=== PATIENT | male | born 2000 | race Caucasian/White ===

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

== ENCOUNTER 2021-03-11 10:47 | Observation (INO) ==
[2021-03-11] MEDS ORDERED: Morphine 4 MG/ML VIAL (1 ml) IV ONE (10:50)
[2021-03-11] MEDS ORDERED: Ondansetron 4 mg VIAL 2 MG/ML 2 ml VIAL IV ONE (10:50)
[2021-03-11] MEDS ORDERED: NS 0.9% 1000 ml BAG 1,000 ML IV ONE (10:51)
[2021-03-11 11:16] LABS: ABS Eosinophils 0.1 10^3/ul (0-0.6); ABS Lymphocytes 1.2 10^3/ul (1.0-4.8); ABS Monocytes 0.5 10^3/ul (0-0.8); ABS Neutrophils 2.2 10^3/ul (1.5-7.7); Eosinophil % 1.8 %; Hematocrit 40 % (42-52); Hemoglobin 14.2 g/dL (14.0-18.0); Mean Corpuscular HGB Conc 35 g/dL (31-36); Mean Corpuscular Hemoglobin 32 pg (27-31); Mean Corpuscular Volume 90 fL (80-94); Mean Platelet Volume 7.6 fL (7.4-10.4); Nucleated Red Blood Cells % 0.1; Platelet Count 319 10^3/uL (150-450); Red Blood Count 4.47 10^6 /uL (4.18-5.48); Red Cell Distribution Width 13 % (10-15)
[2021-03-11 11:49] LABS: Albumin 4.8 g/dL (3.2-5.2); Anion Gap 8 mmol/L (2-11); CO2 Carbon Dioxide 25 mmol/L (22-32); Calcium 9.6 mg/dL (8.6-10.3); Chloride 106 mmol/L (101-111); Potassium 3.8 mmol/L (3.5-5.0); Sodium 139 mmol/L (135-145)
[2021-03-11 11:55] LABS: ALT 26 U/L (7-52); AST 20 U/L (13-39); Albumin/Globulin Ratio 1.4 (1-3); Alkaline Phosphatase 58 U/L (35-149); Blood Urea Nitrogen 15 mg/dL (6-24); EGFR African American 125.7 (>60); EGFR Non-African American 103.9 (>60); Globulin 3.4 g/dL (2-4); Glucose 109 mg/dL (70-100); Total Protein 8.2 g/dL (6.4-8.9)
[2021-03-11] MEDS ORDERED: Prochlorperazine 5 mg/ml 2 ml VIAL (10 mg) IV PRN (15:24)
[2021-03-11] MEDS: NS 0.9% 1000 ml BAG 1,000 ML IV SCH (15:39)
[2021-03-11 17:12] LABS: Amylase 24 U/L (29-103); Lipase < 10 U/L (11.0-82.0)
[2021-03-11] MEDS: Carboxymethylcellulose/Glyceri 10 ML OPHTH.GEL lubricant eye gel RIGHT EYE SCH (20:51)
[2021-03-12] MEDS: NS 0.9% 1000 ml BAG 1,000 ML IV SCH ×2 (02:52→14:03)
[2021-03-12 06:53] LABS: ABS Eosinophils 0.1 10^3/ul (0-0.6); ABS Lymphocytes 2.2 10^3/ul (1.0-4.8); ABS Monocytes 0.6 10^3/ul (0-0.8); ABS Neutrophils 1.5 10^3/ul (1.5-7.7); Eosinophil % 3.4 %; Hematocrit 36 % (42-52); Hemoglobin 12.7 g/dL (14.0-18.0); Lymphocyte % 49.6 %; Mean Corpuscular HGB Conc 35 g/dL (31-36); Mean Corpuscular Hemoglobin 32 pg (27-31); Mean Corpuscular Volume 91 fL (80-94); Mean Platelet Volume 8.1 fL (7.4-10.4); Platelet Count 246 10^3/uL (150-450); Red Blood Count 3.94 10^6 /uL (4.18-5.48); Red Cell Distribution Width 13 % (10-15); White Blood Count 4.4 10^3/uL (3.5-10.8)
[2021-03-12 07:08] LABS: Calcium 8.7 mg/dL (8.6-10.3); EGFR African American 161.6 (>60); EGFR Non-African American 133.5 (>60); Potassium 3.8 mmol/L (3.5-5.0)
[2021-03-12 11:10] LABS: Urine Appearance Clear; Urine Bilirubin Negative (Negative); Urine Blood 1+ (Negative); Urine Color Yellow; Urine Glucose Negative (Negative); Urine Ketones Negative (Negative); Urine Nitrite Negative (Negative); Urine Protein Negative (Negative); Urine Specific Gravity 1.012 (1.002-1.030); Urine Urobilinogen Negative (Negative)
[2021-03-12 11:16] LABS: Urine Bacteria Absent (Absent); Urine Red Blood Cell Trace(0-2/hpf) (Absent); Urine White Blood Cell Trace(0-5/hpf) (Absent)
[2021-03-12] MEDS: Carboxymethylcellulose/Glyceri 10 ML OPHTH.GEL lubricant eye gel RIGHT EYE SCH (19:50)
[2021-03-13] MEDS: NS 0.9% 1000 ml BAG 1,000 ML IV SCH (00:27)
[2021-03-13 11:00] VITALS: BP 127/81
== END 2021-03-13 11:21 | disposition home or self-care (01) ==
LOC: ED 10:47 → MCHPEDS 10:47 → SSU 20:12
PROVIDERS: ADMIT Hospitalist; ATTEND Hospitalist

== ENCOUNTER 2021-03-17 11:43 | Inpatient (IN) ==
[2021-03-17 12:29] LABS: ABS Lymphocytes 0.9 10^3/ul (1.0-4.8); ABS Monocytes 0.5 10^3/ul (0-0.8); ABS Neutrophils 5.8 10^3/ul (1.5-7.7); Eosinophil % 0.6 %; Hematocrit 42 % (42-52); Hemoglobin 14.6 g/dL (14.0-18.0); Lymphocyte % 12.1 %; Mean Corpuscular HGB Conc 35 g/dL (31-36); Mean Corpuscular Hemoglobin 32 pg (27-31); Mean Corpuscular Volume 91 fL (80-94); Mean Platelet Volume 7.3 fL (7.4-10.4); Platelet Count 326 10^3/uL (150-450); Red Blood Count 4.56 10^6 /uL (4.18-5.48); Red Cell Distribution Width 13 % (10-15); White Blood Count 7.2 10^3/uL (3.5-10.8)
[2021-03-17 12:30] LABS: Urine Appearance Clear; Urine Bilirubin Negative (Negative); Urine Blood Negative (Negative); Urine Color Yellow; Urine Glucose Negative (Negative); Urine Ketones Negative (Negative); Urine Nitrite Negative (Negative); Urine Protein Negative (Negative); Urine Specific Gravity 1.025 (1.002-1.030); Urine Urobilinogen Negative (Negative)
[2021-03-17 12:42] LABS: Urine Bacteria Absent (Absent); Urine Red Blood Cell 1+(3-5/hpf) (Absent); Urine Squamous Epithelial Cell Present (Absent); Urine White Blood Cell 1+(6-10/hpf) (Absent)
[2021-03-17 12:46] LABS: ALT 43 U/L (7-52); AST 28 U/L (13-39); Albumin 4.8 g/dL (3.2-5.2); Albumin/Globulin Ratio 1.4 (1-3); Alkaline Phosphatase 62 U/L (35-149); Anion Gap 9 mmol/L (2-11); Blood Urea Nitrogen 12 mg/dL (6-24); CO2 Carbon Dioxide 23 mmol/L (22-32); Calcium 9.6 mg/dL (8.6-10.3); Chloride 104 mmol/L (101-111); EGFR African American 164.1 (>60); EGFR Non-African American 135.6 (>60); Globulin 3.5 g/dL (2-4); Glucose 109 mg/dL (70-100); Sodium 136 mmol/L (135-145); Total Protein 8.3 g/dL (6.4-8.9)
[2021-03-17 13:08] LABS: Acetaminophen < 15 mcg/mL; Alcohol, S < 13 mg/dL (<13); Salicylate < 2.50 mg/dL (<30)
[2021-03-17 13:10] LABS: Urine Benzodiazepine Screen None Detected (None Detect); Urine Cannabinoids Screen Presumptive Positive (None Detect); Urine Opiates Screen None Detected (None Detect)
[2021-03-17 13:21] LABS: TSH Ultra Thyroid Stim Horm 0.64 mcIU/mL (0.34-5.60)
[2021-03-17] MEDS ORDERED: Al Hydrox/Mg Hydrox/Simet LIQ 30 ML UDC PO PRN (13:55)
[2021-03-17] MEDS: Nicotine PATCH 21 MG/24 HR PATCH TRANSDERM SCH (15:19)
[2021-03-17] MEDS: Carboxymethylcellulose/Glyceri 10 ML OPHTH.GEL lubricant eye gel RIGHT EYE SCH (21:04)
[2021-03-18 08:04] LABS: HDL Cholesterol 30.5 mg/dL
[2021-03-18] MEDS: Nicotine PATCH 21 MG/24 HR PATCH TRANSDERM SCH (11:03)
[2021-03-18] MEDS: Vitamin THERAPEUTIC TAB PO SCH (11:04)
[2021-03-18] MEDS: Carboxymethylcellulose/Glyceri 10 ML OPHTH.GEL lubricant eye gel RIGHT EYE SCH (20:07)
[2021-03-18] MEDS: Lidocaine PATCH 5% PATCH TRANSDERM SCH (20:38)
[2021-03-19 08:24] LABS: EGFR African American 119.6 (>60); EGFR Non-African American 98.9 (>60)
[2021-03-19] MEDS: Lidocaine Patch REMOVE PATCH PATCH OFF SCH (08:52)
[2021-03-19] MEDS: Nicotine PATCH 21 MG/24 HR PATCH TRANSDERM SCH (08:53)
[2021-03-19] MEDS: Vitamin THERAPEUTIC TAB PO SCH (09:46)
[2021-03-19] MEDS: Carboxymethylcellulose/Glyceri 10 ML OPHTH.GEL lubricant eye gel RIGHT EYE SCH (20:44)
[2021-03-19] MEDS: Lidocaine PATCH 5% PATCH TRANSDERM SCH (20:44)
[2021-03-20] MEDS: Vitamin THERAPEUTIC TAB PO SCH (09:53)
[2021-03-20] MEDS: Nicotine PATCH 21 MG/24 HR PATCH TRANSDERM SCH (09:53)
[2021-03-20] MEDS: Lidocaine Patch REMOVE PATCH PATCH OFF SCH (09:54)
[2021-03-20] MEDS ORDERED: COVID-19 VACCINE, AD26(JANSSEN)/PF 0.5 ML IM ONE (17:30)
[2021-03-20] MEDS: Carboxymethylcellulose/Glyceri 10 ML OPHTH.GEL lubricant eye gel RIGHT EYE SCH (20:35)
[2021-03-20] MEDS: Lidocaine PATCH 5% PATCH TRANSDERM SCH (21:11)
[2021-03-21] MEDS: Vitamin THERAPEUTIC TAB PO SCH (08:51)
[2021-03-21] MEDS: Nicotine PATCH 21 MG/24 HR PATCH TRANSDERM SCH (08:52)
[2021-03-21] MEDS: Lidocaine Patch REMOVE PATCH PATCH OFF SCH (08:52)
[2021-03-21] MEDS: Nicotine GUM 2MG FRUIT FLAVOR PO PRN (08:52)
[2021-03-21] MEDS: Lidocaine PATCH 5% PATCH TRANSDERM SCH (21:47)
[2021-03-21] MEDS: Carboxymethylcellulose/Glyceri 10 ML OPHTH.GEL lubricant eye gel RIGHT EYE SCH (21:47)
[2021-03-22] MEDS: Vitamin THERAPEUTIC TAB PO SCH (08:23)
[2021-03-22] MEDS: Nicotine PATCH 21 MG/24 HR PATCH TRANSDERM SCH (08:24)
[2021-03-22] MEDS: Lidocaine Patch REMOVE PATCH PATCH OFF SCH (08:24)
[2021-03-22] MEDS: Nicotine GUM 2MG FRUIT FLAVOR PO PRN (16:01)
[2021-03-22] MEDS: Lidocaine PATCH 5% PATCH TRANSDERM SCH (20:47)
[2021-03-22] MEDS: Carboxymethylcellulose/Glyceri 10 ML OPHTH.GEL lubricant eye gel RIGHT EYE SCH (20:58)
[2021-03-23 08:19] VITALS: BP 132/72
[2021-03-23] MEDS: Vitamin THERAPEUTIC TAB PO SCH (08:32)
[2021-03-23] MEDS: Lidocaine Patch REMOVE PATCH PATCH OFF SCH (08:34)
== END 2021-03-23 13:00 | disposition home or self-care (01) | DRG 755 ==
LOC: ED 11:43 → BSU 13:55
PROVIDERS: ADMIT Psychiatry & Neurology Psychiatry; ATTEND Psychiatry & Neurology Psychiatry